=== PATIENT | male | born 1945 | race Caucasian/White ===

== ENCOUNTER 2022-04-12 19:09 | Emergency (ER) | payer MEDICARE, SELFPAY ==
[2022-04-12 20:26] LABS: Anion Gap 15 mmol/L (10-20); BUN (Urea Nitrogen) 22 mg/dL (8.4-25.7); Calc. Creatinine Clearance 0 mL/min (70-130); Calcium 10.1 mg/dL (7.8-10.44); Carbon Dioxide 27 mmol/L (23-31); Chloride 101 mmol/L (98-107); Estimated GFR 61; Glucose 104 mg/dL (83-110); Potassium 4.2 mmol/L (3.5-5.1); Sodium 139 mmol/L (136-145)
== END 2022-04-12 22:30 | disposition home or self-care (01) ==
LOC: CSHERS 19:09
DX: R13.10 Dysphagia, unspecified (principal)
CPT/HCPCS: 71250; 80048; 93005